=== PATIENT | female | born 1985 ===

== ENCOUNTER 2016-06-03 23:55 | Inpatient (IN) | payer MEDICAID ==
[2016-06-04] MEDS ORDERED: MINERAL OIL 25 ML BOT ONE (00:16)
[2016-06-04] MEDS ORDERED: LIDOCAINE 1% (PRES FREE) 30 ML VIAL ONE (00:16)
[2016-06-04] MEDS ORDERED: LIDOCAINE Viscous 2% 15 ML UDCUP ONE (00:16)
[2016-06-04] MEDS ORDERED: IV START KIT ONE (00:16)
[2016-06-04] MEDS ORDERED: OXYTOCIN 10 UNITS/ML VIAL ONE (00:16)
[2016-06-04] MEDS ORDERED: LACTATED RINGERS 1,000 ML ONE (00:16)
[2016-06-04] MEDS ORDERED: PUMP TUBING ONE (00:17)
[2016-06-04] MEDS ORDERED: SODIUM CHLORIDE 0.9% FLUSH 10 ML ONE (00:17)
[2016-06-04] MEDS ORDERED: OXYTOCIN IN LR 500 ML IV ONE ×3 (00:17→09:45)
[2016-06-04] MEDS ORDERED: PENICILLIN G POTASSIUM 5 MMU in NS 0.9% (MINI-BAG PLUS) 100 ML IV ONE (00:18)
[2016-06-04] MEDS: LACTATED RINGERS 1,000 ML IV SCH ×2 (00:30→07:58)
[2016-06-04] MEDS ORDERED: PENICILLIN G POTASSIUM 5 MMU VIAL ONE (00:37)
[2016-06-04] MEDS ORDERED: NS 0.9% (MINI-BAG PLUS) 100 ML IV ONE (00:38)
[2016-06-04 01:00] VITALS: BMI 29.7
[2016-06-04 01:31] LABS: HEMATOCRIT 32.2 % (37.0-47.0); HEMOGLOBIN 10.7 gm/l (12.0-16.0); MEAN CELL VOLUME 84.1 fl (81.0-99.0); MEAN CORPUSCULAR HEMOGLOBIN 27.9 pg (27.0-31.0); MEAN CORPUSCULAR HGB CONC 33.2 g/dl (33.0-37.0); RED CELL DISTRIBUTION WIDTH 14.1 % (11.5-14.5)
--- NOTE | 2016-06-04 02:27 | PCMAN ---
OB Admission Note - History : 6 Term: 5 : 0 Abortions (S&E): 0 Livin EDC:: 06/19/16 (by LMP, consistent with US) Gestational Age (weeks): 37 Days (#/7): 6 Admit Cervical Dilation:: 6 Admit Cervical Effacement (%):: 80 Admit Station:: -1 Admit Presentaton:: vertex Membrane Status: Intact Labor Onset (Date): 06/04/16 Labor Onset (Time): 21:00 Contractions: Yes Contraction Frequency:: q2-3 Heart Rate:: 115 (moderate variability/accels +/decels -) Status:: Cat. I EFW:: 8lbs Summary of Course:: Onset ot care at 13wks, JUDSON by LMP and 15wk u/s. pre-preg wt 129lbs, BMI 27.3, TWlbs. complicated by grand multiparitypositive GC/CT in , followed by nml DAHLIA x 2, following treatment. OB hx x5 without complications. Desires unmedicated . Hx fast labors noted in her chart. membranes intact, GBS postive - Labs Blood Type: A (+) positive Rubella Status: Immune GBS Status: Positive Other Labs:: 03/10 pos GC/CT with normal DAHLIA x 2 Elevated 1hr GTT followed by nml 3hr GTT - Review of Systems ROS neg - Physical Exam General: Afebrile Psych/Mental Status: Mood/Affect Appropriate, Judgment/Insight Intact, Bonding Well Neurological: Grossly Intact, Alert, Oriented x 4, Normal Gait, Normal Speech Cardiovascular: Regular Rate and Rhythm Abdomen: Normal Bowel Sounds Extremities: Full ROM Skin: Normal Color, Warm, Dry, Intact - Problems (1) Group B streptococcal infection during Status: Acute Code: O98.819Assessment/Plan: A: 31yo with IUP at 37w6d Latent Labor, membranes intact, GBS positive Hx chlamydia with nm DAHLIA x 2 FHT: Appropriate for IA P: Admit to [facility], IA Initiate PCN antibiotic prophylaxis expectant management and anticipate re-evaluate after 2nd PCN prophylaxis given
[2016-06-04] MEDS ORDERED: PENICILLIN G 3 MIL UNIT PREMIX 50 ML IV ONE ×2 (03:46→08:10)
[2016-06-04] MEDS: PENICILLIN G 3 MIL UNIT PREMIX 3 MMU in Premix (D5W) 50 ml 1 EACH IV SCH ×2 (04:10→08:12)
--- NOTE | 2016-06-04 06:19 | PDOC36 ---
Provider Note Subject: labor progress note Note: S: Called to patient room d/t Melina feeling pushing. Lying in bed. O: VE: 7/60/-2 Ctx q 3-5min, strong, lasting 60 sec I: baseline rate 120/increases auscultated/ no decreases auscultated Suspected LOP by amos and minimal progress BP: 105/68, P: 77, RR: 22, T: 36.6 A: 31yo with IUP at 37w6d Active Labor, membranes intact, GBS positive, PCN x 2 FHT: Appropriate for IA P: Reviewed minimal change, suspected malposition. Melina requests AROM for augmentation of labor. AROM for clear fluid at 0430. Active and passive movement to rotate position. Anticipate .
[2016-06-04] MEDS ORDERED: OXYTOCIN IN LR 500 ML IV PRN (08:02)
[2016-06-04] MEDS ORDERED: LACTATED RINGERS 1,000 ML IV SCH (08:15)
[2016-06-04] MEDS ORDERED: LACTATED RINGERS 1,000 ML IV PRN (09:45)
[2016-06-04] MEDS ORDERED: ACETAMINOPHEN 325 MG TABLET PO PRN (09:45)
[2016-06-04] MEDS ORDERED: BENZOCAINE/MENTHOL 60 APPLIC/BOT TP PRN (09:45)
[2016-06-04] MEDS ORDERED: HYDROCODONE/ACETAMINOPHEN 5/325MG TABLET PO PRN (09:45)
[2016-06-04] MEDS ORDERED: LANOLIN 50 APPLIC/7G TUBE TP PRN (09:45)
[2016-06-04] MEDS ORDERED: MAGNESIUM HYDROXIDE 30 ML UDCUP PO PRN (09:45)
[2016-06-04] MEDS: IBUPROFEN 800 MG TABLET PO SCH ×2 (11:07→18:35)
--- NOTE | 2016-06-04 12:36 | PDOC36 ---
Provider Note Subject: labor progress note Note: S: Melina is working hard, and has had a strong urge to push with contractions. Is able to sleep between contractions. O: VE: 7/90/-1, MUNIR by amos Ctx q 3-10min, strong, lasting 60 sec FHT: 115/moderate variability/accelerations present/decelerations absent BP: 98/56, P: 77, RR: 18, T: 97.6F A: 31yo with IUP at 37w6d Protracted Active Labor AROM x 3.5hrs, GBS positive, PCN x 3 FHT: Cat. I P: Reviewed minimal change despite rotation. Reviewed contraction pattern and made recommendation to start pitocin to increase contraction frequency. Almita agrees to plan. Initiate oxytocin administration, initiate cEFM. Anticipate .
--- NOTE | 2016-06-04 14:33 | PCMDEL ---
Delivery Note - Labor 1st stage (hr/min):: 11h55m 2nd stage (hr/min):: 0h5m 3rd stage (hr/min):: 0h14m Total (hr/min):: 12h14m Pushed (hr/min):: 0h5m - Delivery Delivery (Date): 06/04/16 Delivery (Time): 09:00 Infant Gender: Male Weight: 6 lb 14 oz Length: 1 ft 8 in Presentation: Cephalic Position: OA Umbilical Cord: 3 Vessel Delayed Cord Clamping:: > 3 min 1 Minute Total: 9 5 Minute Total: 9 Placenta:: spontaneous intact monica 3vc EBL:: 100ml Perineum:: intact Suture:: none Anesthesia/Meds:: none Length ROM:: 4h25m Comments:: Melina arrived to [facility] in active labor with hx of fast labors. After she received adequate PCN prophylaxis for GBS positive (membranes intact), she had made minimal progress and she requested AROM augmentation. AROM for clear fluid. Spinning babies and position changes successfully rotated malpositioned baby with minimal cervical private branch exchange repairer four hours. FHR remained appropriate for IA throughout her labor. Due to spaced contraction pattern, minimal cervical change, and sustained strong urge to push, recommended pitocin augmentation, patient agreed. She then progressed quickly to complete dilation and pushed effectively to achieve of vigorous male placed immediately on maternal abdomen for skin to skin bonding and drying. OA to MUNIR. APgars 9/9. Intact perineum. Delayed cord clamping until cessation of pulsation >3min, clamped, and cut by FOB. AMTSL with IV pitocin. Spontaneous delivery of intact placenta. 3vc. fundus firm midline below U. cord blood collected. Hemostasis achieved. EBL 100ml. Mom and baby stable.
[2016-06-05] MEDS: IBUPROFEN 800 MG TABLET PO SCH ×4 (01:03→22:30)
[2016-06-05 06:58] LABS: HEMATOCRIT 28.5 % (37.0-47.0); HEMOGLOBIN 9.4 gm/l (12.0-16.0)
[2016-06-05] MEDS: DOCUSATE SODIUM 100 MG CAPSULE PO PRN (09:39)
[2016-06-06] MEDS: FERROUS GLUCONATE (38 Fe) 324 MG TABLET PO SCH ×2 (00:29→08:13)
[2016-06-06] MEDS: IBUPROFEN 800 MG TABLET PO SCH (00:29)
[2016-06-06 08:07] VITALS: BP 101/61
[2016-06-06] MEDS: DOCUSATE SODIUM 100 MG CAPSULE PO PRN (08:13)
--- NOTE | 2016-06-06 10:40 | PDOC39B ---
Hospital Course: ADMIT DATE: 06/04/16 DISCHARGE DATE: 06/06/16 ADMISSION DIAGNOSES: Active Labor PROCEDURES: HISTORY OF PRESENT ILLNESS: 31 year old G6 T5 L5 at 37 weeks 6 days presenting with active labor. HOSPITAL COURSE: The patient is voiding and ambulating without difficulty. Pain well managed with Ibuprofen; requests Rx for going home. Bleeding getting union carpenter. No hx of complications. Exclusively ; latch getting better. Breastfed other children successfully and will take home manual breast pump. Good support going home. Denies hx of depression or anxiety. Knows to take iron supplement. By day of discharge the patient is stable, well and ready to go home. - Physical Exam Vital Signs: Temp Pulse Resp BP Pulse Ox 98.0 F 65 16 101/61 06/06/16 08:04 06/06/16 08:04 06/06/16 08:04 06/06/16 08:04 General: Afebrile, No Acute Distress Psych/Mental Status: Mood/Affect Appropriate, Judgment/Insight Intact, Bonding Well Neurological: Grossly Intact, Alert, Oriented x 4 Breast: Soft, Skin intact, Nipples Intact, No Tenderness, No Erythema Fundus: Firm, Midline, Below Umbilicus Genitourinary: Normal Female Genitalia, No Edema Lochia: Light - Discharge Diagnosis (1) Normal course Status: Acute - Discharge Plan Disposition: Home Additional Instructions: Handout given and reviewed Prescriptions: Ibuprofen [Motrin] 800 mg PO Q6H PRN #60 tablet PRN Reason: Pain Follow-Up: Veronica Ponce CNM [Certified Nurse Personal Care Aide] - 06/29/16 10:00 am
--- NOTE | 2016-06-06 11:19 | PDOC44 ---
- Subjective Day: 1 Patient is recovering well. She denies pain, has minimal bleeding and overall feels well. She is having difficulty with . Infant does not have a strong latch or suck and is being supplemented with banked breast milk from a syringe. Infant has not yet latched and breastfed well. Reports Flatus, Reports Pain Tolerable, Reports (supplementing with banked breastmilk;infant not latching), Reports Lochia Light, Reports Tolerating Regular Diet - Objective Temp Pulse Resp BP Pulse Ox 98.0 F 72 16 92/56 06/05/16 09:35 06/05/16 09:35 06/05/16 09:35 06/05/16 09:35 Lab Results 06/05/16 06:00 Hgb 9.4 L Hct 28.5 L Current Medications Generic Name Dose Route Start Last Admin Trade Name Freq PRN Reason Stop Dose Admin Acetaminophen 325 - 650 mg 06/04/16 09:45 Tylenol PO Q4H PRN Pain (Mild) Acetaminophen/Hydrocodone Bitart 1 - 2 tab 06/04/16 09:45 [place] 5/325 PO Q4H PRN Pain (Moderate) Benzocaine/Menthol 1 applic 06/04/16 09:45 Dermoplast TP PRN PRN Patient Comfort Docusate Sodium 100 mg 06/04/16 09:45 06/05/16 09:39 Colace PO 100 mg DAILY PRN Administration Comfort Emollient Ointment 1 applic 06/04/16 09:45 Ryo-V-[id number] TP PRN PRN sore nipples Lactated Ringer's 1,000 mls @ 100 mls/hr 06/04/16 09:45 Lactated Ringers IV .Q10H PRN Titrate per clinical situation Ibuprofen 800 mg 06/04/16 10:30 06/05/16 09:40 Motrin PO 800 mg Q6H JOSE ROBERTO Administration Magnesium Hydroxide 30 ml 06/04/16 09:45 Milk Of Magnesia PO BEDTIME PRN Constipation Sodium Chloride 10 ml 06/04/16 17:00 Normal Saline 10ml Flush IV Q8HR JOSE ROBERTO Sodium Chloride 10 ml 06/04/16 10:49 06/04/16 11:55 Normal Saline 10ml Flush IV 10 ml PRN PRN Administration - Physical Exam General: Afebrile Psych/Mental Status: Mood/Affect Appropriate, Judgment/Insight Intact, Bonding Well Neurological: Grossly Intact, Alert, Oriented x 4 HEENT: Atraumatic Lungs: Clear to Auscultation Bilaterally, Normal Air Movement Cardiovascular: Regular Rate and Rhythm, Normal S1, Normal S2 Breast: Soft, Skin intact, Nipples Intact Fundus: Firm, Below Umbilicus Genitourinary: Normal Female Genitalia Lochia: Light Rectal Exam: Deferred Skin: Normal Color - Problems:Assessment/Plan (1) Normal course Status: Acute (2) Does not latch to breast for feeding Status: AcuteAssessment/Plan: A: PP Day 1 s/p Normal course unable to latch - supplementing with banked breast milk lochia appropriate pain controlled Anemia P: feeding plan and additional support from IBCLC and RRN. Follow closely with [facility] Breast pump Rx PO iron Anticipate DC to home tomorrow (3) anemia Status: Acute Disposition: Anticipate DC Home Tomorrow
== END 2016-06-06 11:20 | disposition home or self-care (01) | DRG 775 ==
LOC: FBCOUT 23:55 → FBC 23:55 → FBCOUT 06-04 00:05
PROVIDERS: ADMIT Advanced Practice Midwife; ATTEND Family Medicine
PROC: 10E0XZZ Delivery of Products of Conception, External Approach (ICD-10-PCS; principal; 2016-06-04)
PROC: 10907ZC Drainage of Amniotic Fluid, Therapeutic from Products of Conception, Via Natural or Artificial Opening (ICD-10-PCS; 2016-06-04)
DX: O99.824 Streptococcus B carrier state complicating childbirth (principal); O32.9XX0 Maternal care for malpresentation of fetus, unspecified, not applicable or unspecified; Z3A.39 39 weeks gestation of pregnancy; Z37.0 Single live birth; O09.43 Supervision of pregnancy with grand multiparity, third trimester